=== PATIENT | female | born 1960 | race American Indian/Alaskan Native ===

== ENCOUNTER 2019-05-17 12:48 | Emergency (ER) | payer OTHER ==
--- NOTE | 2019-05-17 13:27 | Cat Scan Report ---
CT BRAIN: 05/17/2019 INDICATION / CLINICAL INFORMATION: MAIN: CODE STROKE neuro deficits <6hrs or sx present upon awakening #[id number] UNABLE TO KEEP P T STILL. COMPARISON: None available. FINDINGS: BRAIN/INTRACRANIAL STRUCTURES: Unenhanced CT images of the brain demonstrate diffuse subarachnoid hem orrhage, with hyperdense subarachnoid blood present in all subarachnoid spaces, including basilar amb ient cisterns, sylvian fissures, interhemispheric fissure, sylvian fissure, and cortical sulci. There are more focal accumulations of blood in the anterior interhemispheric region as well as overlying t he body of the corpus callosum. There is evidence of developing hydrocephalus with enlargement of the lateral and third ventricles. Patient has an incidental arachnoid cyst in the right cerebellopontine angle region, which excludes the subarachnoid hemorrhage at this time. Because of the diffuse nature of this hemorrhage, difficult to specifically localize a probable sourc e, although the overall pattern and patient of this age is suggestive of aneurysmal hemorrhage. EXTRACRANIAL STRUCTURES: Unremarkable. IMPRESSION: 1. Extensive diffuse subarachnoid hemorrhage. 2. Developing hydrocephalus. 3. Incidental right posterior fossa arachnoid cyst. Positive critical value: Time of discovery: [address] Notification: Dr. Zamora in the emergency department at [address] scans at this location are performed using dose reduction to ALARA by means of automated expos ure control. Signer Name: Des Newell MD Signed: 05/17/2019 1:23 PM Workstation Name: [id number]
[2019-05-17] MEDS ORDERED: levETIRAcetam 1000 MG/NS 0.75% 1,000 MG/100 ML BAG IV ONE (13:31)
[2019-05-17] MEDS ORDERED: PROPOFOL 1,000 MG/100 ML BOTTLE IV ONE (13:49)
[2019-05-17] MEDS ORDERED: niCARdipine 50 MG in SODIUM CHLORIDE 0.9% 250ML 230 ML IV SCH (14:00)
[2019-05-17 14:16] VITALS: BP 193/110
[2019-05-17] MEDS ORDERED: SODIUM CHLORIDE 0.9% 1000 ML 1,000 ML ONE (14:20)
[2019-05-17] MEDS ORDERED: AMINOCAPROIC ACID 5,000 MG in SODIUM CHLORIDE 0.9% 100 ML IV ONE (14:33)
--- NOTE | 2019-05-17 14:39 | XRay Report ---
CERVICAL SPINE 1 VIEW INDICATION / CLINICAL INFORMATION: Trauma patient status post fall. Helicopter radiating to transport--unable to repeat x-ray COMPARISON: None available. FINDINGS: Portable single crosstable lateral view was obtained. VERTEBRAE: Cervical spine is seen only down to the level of C4-5. Lower cervical spine and cervicotho racic junction are not well visualized. No definite fracture of the upper cervical spine. DISC SPACES / FACET JOINTS:Mild disc space narrowing at C4-5. PARASPINAL SOFT TISSUES:No significant abnormality. ADDITIONAL FINDINGS: None. IMPRESSION: 1. No definite acute abnormality of the upper cervical spine. Complete cervical spine radiographic se jessica versus CT cervical spine is recommended for complete evaluation. Signer Name: Wilmer Dixon MD Signed: 05/17/2019 2:35 PM Workstation Name: [id number]
--- NOTE | 2019-05-17 14:43 | XRay Report ---
CHEST 1 VIEW INDICATION / CLINICAL INFORMATION: POST INTUBATION. COMPARISON: None available. FINDINGS: SUPPORT DEVICES: ET tube is present. The tip is within the proximal right mainstem bronchus. Please w ithdraw approximately 4 cm. HEART / MEDIASTINUM: No significant abnormality. LUNGS / PLEURA: Mild pulmonary vascular congestion. No pneumothorax. ADDITIONAL FINDINGS: No significant additional findings. IMPRESSION: 1. Right mainstem bronchial intubation. 2. Pulmonary vascular congestion. Dr. Zamora was notified of this finding at 1338 RETAIL EVENT COORDINATOR. He stated that he already had retracted the ET tu be and was aware. Signer Name: Mady Manzo MD Signed: 05/17/2019 2:39 PM Workstation Name: [id number]
--- NOTE | 2019-05-17 15:16 | Emergency Department Report ---
ED General Adult HPI - General Chief complaint: Altered Mental Status Stated complaint: FALL/STROKE Time Seen by Provider: 05/17/19 13:01 Source: EMS Mode of arrival: Stretcher Limitations: No Limitations - History of Present Illness Initial comments: This is a 59-year-old female that was sent immediately to CT as a code stroke. She was seen by the telemetry neurologist before I was able to examine her. Upon my encounter he was clear that patient was really quite altered has suffered a fall with facial injury and was or lethargic. Her calculated GCS was 7 scoring 3 points for motor 1 for verbal and 2 for eye opening. I reviewed the CT of her head which showed a massive subarachnoid hemorrhage. I immediately moved her into a critical care area. I spoke to neurosurgery at [facility]. They concurred with endotracheal intubation. That was so performed. I called the and informed him of patient's status. I recommended that he come to the hospital. At this juncture I have not seen him and the patient has already been transferred via helicopter to [place]. stated that the patient was found in the shower. Apparently she was confused disoriented covered with blood feces. [facility] was called and she was transported without cervical mobilization to this facility. The onset of symptoms is not known. The had returned to the house from a long distance truck trip. Severity scale (0 -10): 0 - Related Data Allergies Allergy/AdvReac Type Severity Reaction Status Date / Time Unable to Assess Allergy Unverified 05/17/19 13:00 ED Review of Systems ROS: Stated complaint: FALL/STROKE Other details as noted in HPI Comment: Unobtainable due to pts medical conditions ED Past Medical Hx - Past Medical History Additional medical history: According to the the patient had not been to the physician in some time. She has no known history of hypertension. - Social History Smoking Status: Unknown if ever smoked ED Physical Exam - General Limitations: Altered Mental Status General appearance: lethargic, obtunded - Head Head exam: Present: other (dried blood on forehead) - Eye Eye exam: Present: PERRL, EOMI - ENT ENT exam: Present: mucous membranes dry - Neck Neck exam: Present: normal inspection. Absent: tenderness, meningismus - Respiratory Respiratory exam: Present: normal lung sounds bilaterally. Absent: respiratory distress - Cardiovascular Cardiovascular Exam: Present: regular rate, normal rhythm. Absent: systolic murmur, diastolic murmur, rubs, gallop - GI/Abdominal GI/Abdominal exam: Present: soft, normal bowel sounds. Absent: distended, tenderness, guarding, rebound, rigid - Extremities Exam Extremities exam: Present: normal inspection - Neurological Exam Neurological exam: Present: other (GCS is 7. Exam is largely limited and nonfocal.) ED Course Vital Signs 05/17/19 05/17/19 05/17/19 13:15 13:21 13:50 Temperature 96.4 F L Pulse Rate 103 H 106 H Respiratory 15 18 16 Rate Blood Pressure 157/80 149/104 [Left] O2 Sat by Pulse 99 100 Oximetry 05/17/19 05/17/19 05/17/19 13:51 14:13 14:14 Temperature Pulse Rate 91 H 96 H 96 H Respiratory 16 16 16 Rate Blood Pressure 139/104 227/118 196/102 [Left] O2 Sat by Pulse 100 100 100 Oximetry 05/17/19 14:15 Temperature Pulse Rate 82 Respiratory 16 Rate Blood Pressure 193/110 [Left] O2 Sat by Pulse Oximetry - Reevaluation(s) Reevaluation #1: Patient was moved to critical care area. Her blood pressure was controlled and ultimately she was placed on a cardene drip. She was intubated utilizing RSI technique with cervical immobilization. She is placed in a hard collar. She was given Amicar 5 g and 1 g of Keppra. 05/17/19 15:17 - Intubation Time Out Performed: No Sedative: Etomidate Paralytic: Succinylcholine Laryngoscope: Tati Size: 4 ET Tube Size: 7.5 Tube Secured Depth (cm): 22 Tube Secured Location: lips Tube Placement Confirmation: visualized tube passing t Patient Tolerated Procedure: well Intubation Complications: none Additional Comments: Tube which on 1.5 cm as was tilted towards the right mainstem bronchus chest at the [facility] ED Medical Decision Making - Radiology Data Radiology results: report reviewed, image reviewed Critical Care Time: Yes Critical care time in (mins) excluding proc time.: 90 Critical care attestation.: If time is entered above; I have spent that time in minutes in the direct care of this critically ill patient, excluding procedure time. ED Disposition Clinical Impression: Subarachnoid hemorrhage, Hypertensive crisis Disposition: DC/TX-70 ANOTHER TYPE HLTHCARE Is pt being admited?: No Does the pt Need Aspirin: No Condition: Stable Instructions: Hypertension (ED) Time of Disposition: 15:20
[2019-05-17] MEDS ORDERED: ETOMIDATE 20 MG/10 ML INJ IV ONE (17:04)
[2019-05-17] MEDS ORDERED: SUCCINYLCHOLINE CHLORIDE 200 MG/10 ML INJ MDV ONE (17:04)
--- NOTE | 2019-05-17 18:00 | Emergency Department Report ---
ED General Adult HPI - General Chief complaint: Altered Mental Status Stated complaint: FALL/STROKE Time Seen by Provider: 05/17/19 13:01 Source: EMS Mode of arrival: Stretcher Limitations: Altered Mental Status - History of Present Illness Initial comments: [facility] Date of Service: 05/17/2019 12:41:28 Impression: Subarachnoid hemorrhage Comments: Patient is being transferred for treatment of SAH. Presentation was suggestive of acute stroke and stroke alert was initially called. CT head reviewed. Metrics: Last Known Well: Unknown [employer] Notification Time: 05/17/2019 12:40:58 Arrival Time: 05/17/2019 12:40:00 Stamp Time: 05/17/2019 12:41:28 Time First Login Attempt: 05/17/2019 12:46:27 Video Start Time: 05/17/2019 12:46:27 Symptoms: unresponsive NIHSS Start Assessment Time: 05/17/2019 12:46:27 Patient is not a candidate for tPA. Patient was not deemed candidate for tPA thrombolytics because of Current or Previous ICH. Video End Time: 05/17/2019 13:00:00 CT head was reviewed and results were: Presence of diffuse subarachnoid hemorrhage History of Present Illness: Patient is a 59 year old Female. Patient was brought by EMS for symptoms of unresponsive Patient was found by her this evening and brought here for further care. Her is a concrete mixing truck driver and has not seen her in person for a week but spoke with her on the phone yesterday at 530 pm at which time speech appeared to be intact. She was found to be covered with blood and feces and EMS was called. EMS noted right sided weakness with left gaze deviation and global aphasia. CT head was reviewed. Examination: NIHSS cannot be completed due to patient status. SHe has dense right sided weakness and left gaze deviation. Global aphasia and patient does not follow commands. Patient was informed the Neurology Consult would happen via TeleHealth consult by way of interactive audio and video telecommunications and consented to receiving care in this manner. Due to the immediate potential for life-threatening deterioration due to underlying acute neurologic illness, I spent 35 minutes providing critical care. This time includes time for face to face visit via telemedicine, review of medical records, imaging studies and discussion of findings with providers, the patient and/or family. Dr Keshawn Cook [employer] Case [id number] Severity scale (0 -10): 0 - Related Data Allergies Allergy/AdvReac Type Severity Reaction Status Date / Time Unable to Assess Allergy Unverified 05/17/19 13:00 ED Review of Systems ROS: Stated complaint: FALL/STROKE Other details as noted in HPI ED Past Medical Hx - Past Medical History Additional medical history: According to the the patient had not been to the physician in some time. She has no known history of hypertension. - Social History Smoking Status: Unknown if ever smoked ED Physical Exam - General Limitations: Altered Mental Status General appearance: lethargic, obtunded ED Course Vital Signs 05/17/19 05/17/19 05/17/19 13:15 13:21 13:50 Temperature 96.4 F L Pulse Rate 103 H 106 H Respiratory 15 18 16 Rate Blood Pressure 157/80 149/104 [Left] O2 Sat by Pulse 99 100 Oximetry 05/17/19 05/17/19 05/17/19 13:51 14:13 14:14 Temperature Pulse Rate 91 H 96 H 96 H Respiratory 16 16 16 Rate Blood Pressure 139/104 227/118 196/102 [Left] O2 Sat by Pulse 100 100 100 Oximetry 05/17/19 14:15 Temperature Pulse Rate 82 Respiratory 16 Rate Blood Pressure 193/110 [Left] O2 Sat by Pulse Oximetry Critical care attestation.: If time is entered above; I have spent that time in minutes in the direct care of this critically ill patient, excluding procedure time. ED Disposition Clinical Impression: Subarachnoid hemorrhage Disposition: DC/TX-70 ANOTHER TYPE HLTHCARE Is pt being admited?: No Condition: Stable Instructions: Hypertension (ED) Referrals: NOAH APARICIO MD [Primary Care Provider] - 3-5 Days
== END 2019-05-17 14:25 | disposition other institution (70) ==
LOC: ED 12:48
DX: I60.9 Nontraumatic subarachnoid hemorrhage, unspecified (principal)
CPT/HCPCS: 31500; 70450; 71045; 72020; 82962; 99291; 99292; J0330; J2704; J7030; J7050